=== PATIENT | female | born 1955 | race Caucasian/White ===

== ENCOUNTER → 2018-01-22 13:25 | Outpatient (CLI) | payer MEDICAID ==
[~2018-01-22 13:25] MED LIST: BIOTIN5 MG PO; CLARITIN 10 MG10 MG PO; ELIQUIS2.5 MG PO; KEFLEX500 MG PO; OMEGA 3 FISH OI1 CAP PO; OXYCODONE HCL5 MG PO; TUMERIC PO; VISTARIL50 MG PO; ZESTRIL20 MG PO; [UNRECOGNIZED DRUG - OTHER] PO
[2018-02-21 09:25] VITALS: BMI 35.9
== END | disposition home or self-care (01) ==
LOC: D.LABREF 13:25
DX: M16.12 Unilateral primary osteoarthritis, left hip (principal); Z11.8 Encounter for screening for other infectious and parasitic diseases

== ENCOUNTER → 2018-01-23 09:05 | Outpatient (CLI) | payer MEDICAID ==
[2018-02-21 09:25] VITALS: BMI 35.9
== END | disposition home or self-care (01) ==
LOC: D.LABREF 09:05
DX: M16.12 Unilateral primary osteoarthritis, left hip (principal); Z11.8 Encounter for screening for other infectious and parasitic diseases

== ENCOUNTER 2018-02-14 10:00 | Inpatient (IN) | payer MEDICAID ==
[~2018-02-14] VITALS: Ht 157.5 cm; Wt 89.1 kg
--- NOTE | ~2018-02-14 | OP ---
PATIENT NAME: KEITH ROBIN MEDICAL RECORD: [id number] :59 LOCATION:[facility]- ADMISSION DATE:02/20/18 SURGEON: CASEY BARNHART DO DATE OF OPERATION: 02/20/2018 PROCEDURE PERFORMED: Left total hip arthroplasty. PREOPERATIVE DIAGNOSIS: Severe left end-stage osteoarthritis of the left hip. POSTOPERATIVE DIAGNOSIS: Severe left end-stage osteoarthritis of the left hip. INDICATIONS: Ms. Robin is a 63-year-old female who has had left hip pain and lack of motion for quite some time. She had been dealing with that for years. She came to see me in my office last month. X-rays were taken and seen to have severe osteoarthritis with a head collapse and even partial subluxation of the femoral head out of the joint due to the collapse. I informed her that we could do a total hip to help with pain. Nonoperative treatment at this point would probably not do too much and she was okay with this. She has tried all conservative measures and is tired of affecting her activities of daily living. She was consented for the procedure and informed her the risks and benefits including fracture, bleeding, damage to nerve and vessels, need for further surgery, infection and even . She is okay with that and wanted to proceed forward and signed the consent. SURGEON: Casey Barnhart DO DESCRIPTION OF PROCEDURE: The patient was given a block in the preoperative area by anesthesia and taken to the operative suite, laid in supine position, given general anesthetic and 1 gram of vancomycin. When she was intubated and sedated, she was moved over to the [place] table and the patient was positioned. The left hip was then prepped and draped in sterile fashion. A timeout was performed, everyone was in agreement to correct side, site, patient, and the procedure. Incision then began over the tensor fascia omaira muscle and careful dissection was made down through the skin to the fascia omaira fascia and this was incised with the plasma blade and then the fascia was taken superiorly and the muscle belly was taken inferiorly with an Adson Lianna. Then the interval over the rectus femoris was found and opened up the ascending branch of the lateral femoral. Circumflex artery was tied off at that time and cut and then the Aquamantys was used to coagulate those vessels as well and was used throughout the procedure to coagulate any bleeders. The retractors were then placed around the femoral neck and the capsulotomy was performed and tagged. The capsule was tagged and the Hohmann retractors were used then moved inside the capsule around the neck and the cut was marked using a broach to rylan it and the femoral neck cut was made. The head was then removed and the acetabulum was exposed. The Charnley retractor was then used to open the incision site in order to get access to the acetabulum. Acetabulum was then cleaned out. The labrum was removed and the ligamentum teres was also removed. All bleeders were coagulated at that time with the Aquamantys. We then began reaming with a 45 first medializing and then into position up to a 52 and the cup was inserted, Osteotec cup, and the shell was then entered. The femur was then exposed. The leg was extended, externally rotated and abducted and a canal finder was used. The broach was used and a [employer]gr [employer] cutter and then the broach. We broached up to an 11. This had good fit and then sized, trialed with a -3 neck with a 42 dual mobility liner and a 28 head. This trial seen to fit very well and a #11 stem was [address] into place and then trialed the -6, it seemed to be a tad too short, so OPERATIVE REPORT [id number] KEITH ROBIN we went with a previously trialed -3 neck with a lateralized or a high offset neck. This was reduced. X-rays were taken and seemed to be good length compared to the right hip and a thorough irrigation was then done and Surgicel beads were placed in the wound and the capsule was closed with #2 Ethibond, which was used to tag it and then the tensor fascia omaira fascia was closed with #1 Vicryl, first with [id number] and then running stitch. The skin was closed with 2-0 Vicryl and 4-0 Monocryl ran on the skin and Prineo Dermabond glue was used on the skin as well and a Telfa and Tegaderm were placed on the skin. Blood loss was approximately 200 mL. Complications were none. TRANSINT:[id number] Voice Confirmation ID: [id number] DOCUMENT ID: [id number] CASEY BARNHART DO at 1222 CC: [id number] DICTATION DATE: 02/20/18 1113 ENGINEER PROCESS: 02/20/18 1210 ADM IN [facility] [address] [id number]
[~2018-02-14 10:00] MED LIST changes: -ELIQUIS2.5 MG PO; -KEFLEX500 MG PO; -OXYCODONE HCL5 MG PO; -VISTARIL50 MG PO
[2018-02-14 11:01] LABS: BASOPHILS 0.7 % (0-2); EOSINOPHILS 1.4 % (0-7); HEMATOCRIT 38.7 % (36.0-48.0); IMMATURE GRANULOCYTES 0.2 % (0-5); LYMPHOCYTES 32.8 % (15-50); MCH 31.6 pg (26.0-34.0); MCHC 33.6 g/dL (31.0-37.0); MCV 94.2 fL (80.0-100.0); MEAN PLATELET VOLUME 9.2 fL (7.4-10.4); MONOCYTES 6.5 % (2-11); NEUTROPHILS 58.4 % (40-80); PLATELET COUNT 240 10x3/uL (130-400); RBC 4.11 10x6/uL (4.00-5.40); RDW 13.8 % (11.5-14.5); WBC 5.9 10x3/uL (4.8-10.8)
[2018-02-14 11:08] LABS: ANION GAP 11.1 mmol/L (8-16); CALCIUM 8.8 mg/dL (8.5-10.1); CARBON DIOXIDE 28.1 mmol/L (21.0-32.0); CREATININE - SERUM 1.5 mg/dL (0.6-1.3); POTASSIUM - SERUM 4.2 mmol/L (3.5-5.1)
[2018-02-14 11:10] LABS: APTT 24.7 SECONDS (22.8-39.4); INR 0.85 (0.85-1.17); PROTIME 11.3 SECONDS (11.6-15.0)
[2018-02-14 11:13] LABS: APPEARANCE CLEAR (CLEAR); BILIRUBIN NEGATIVE (NEGATIVE); COLOR YELLOW (YELLOW); GLUCOSE NEGATIVE (NEGATIVE); KETONE NEGATIVE (NEGATIVE); NITRITE NEGATIVE (NEGATIVE); PROTEIN NEGATIVE (NEGATIVE); SPECIFIC GRAVITY 1.015 (1.005-1.020); UROBILINOGEN NORMAL (NORMAL)
[2018-02-20] VITALS (13 sets, daily range): BP systolic 113–163; BP diastolic 72–108; BMI 36.1; BMI 35.9
[2018-02-21] VITALS: BP 131/70
[2018-02-21 04:00] VITALS: BP 100/54; BP 136/80
[2018-02-21 05:28] LABS: HEMATOCRIT 31.1 % (36.0-48.0); HEMOGLOBIN 10.3 g/dL (12-16); MCH 30.9 pg (26.0-34.0); MCHC 33.1 g/dL (31.0-37.0); MCV 93.4 fL (80.0-100.0); MEAN PLATELET VOLUME 9.5 fL (7.4-10.4); RBC 3.33 10x6/uL (4.00-5.40); RDW 13.7 % (11.5-14.5); WBC 12.3 10x3/uL (4.8-10.8)
[2018-02-21 09:25] VITALS: Ht 157.5 cm; Wt 89.1 kg
[2018-02-21 09:33] VITALS: BP 121/75
[2018-02-21 11:30] VITALS: BP 100/58
[2018-02-21 20:00] VITALS: BP 124/68
[2018-02-22 04:00] VITALS: BP 136/69
[2018-02-22 06:06] LABS: HEMATOCRIT 29.7 % (36.0-48.0); HEMOGLOBIN 9.7 g/dL (12-16); MCH 30.9 pg (26.0-34.0); MCHC 32.7 g/dL (31.0-37.0); MCV 94.6 fL (80.0-100.0); MEAN PLATELET VOLUME 9.8 fL (7.4-10.4); RBC 3.14 10x6/uL (4.00-5.40); RDW 14.2 % (11.5-14.5)
[2018-02-22 06:11] LABS: WBC 8.9 10x3/uL (4.8-10.8)
[2018-02-22 06:14] LABS: ANION GAP 9.4 mmol/L (8-16); CARBON DIOXIDE 26.8 mmol/L (21.0-32.0); CREATININE - SERUM 1.2 mg/dL (0.6-1.3); POTASSIUM - SERUM 4.2 mmol/L (3.5-5.1)
[2018-02-22 08:48] VITALS: BP 153/93
[2018-02-22 12:37] VITALS: BP 140/71
[2018-02-22 20:00] VITALS: BP 160/84
[2018-02-23] VITALS: BP 122/73
[2018-02-23 04:00] VITALS: BP 143/93
[2018-02-23] MEDS ORDERED: ELIQUIS2.5 MG PO (08:19)
[2018-02-23] MEDS ORDERED: VISTARIL50 MG PO (08:20)
[2018-02-23] MEDS ORDERED: OXYCODONE HCL5 MG PO (08:20)
[2018-02-23] MEDS ORDERED: KEFLEX500 MG PO (08:20)
[2018-02-23 08:37] VITALS: BP 155/100
== END 2018-02-23 13:25 | disposition home or self-care (01) | DRG 470 ==
LOC: D.SDCHOLD 10:00 → D.MS 02-20 05:15 → D.SDCHOLD 02-20 05:15 → D.MS 02-20 12:37
PROVIDERS: Internal Medicine Nephrology; Orthopaedic Surgery
PROC: 0SRB0JZ Replacement of Left Hip Joint with Synthetic Substitute, Open Approach (ICD-10-PCS; principal; 2018-02-20 08:00)
DX: M16.12 Unilateral primary osteoarthritis, left hip (principal); D62 Acute posthemorrhagic anemia; N17.9 Acute kidney failure, unspecified; I10 Essential (primary) hypertension; E78.5 Hyperlipidemia, unspecified; R25.1 Tremor, unspecified

== ENCOUNTER → 2018-04-23 18:54 | Outpatient (CLI) | payer MEDICAID ==
[2018-02-21 09:25] VITALS: BMI 35.9
[~2018-04-23 18:54] MED LIST changes: +ELIQUIS2.5 MG PO; +KEFLEX500 MG PO; +OXYCODONE HCL5 MG PO; +VISTARIL50 MG PO
== END | disposition home or self-care (01) ==
LOC: D.MAMMO 11:00
DX: Z12.31 Encounter for screening mammogram for malignant neoplasm of breast (principal)